=== PATIENT | male | born 1980 | race African-American/Black ===

== ENCOUNTER 2019-07-20 12:31 | Emergency (ER) | payer MEDICAID ==
[~2019-07-20] VITALS: Ht 167.6 cm; Wt 82.0 kg
[2019-07-20 13:32] VITALS: BP 104/84
== END 2019-07-20 15:30 | disposition left against medical advice (07) ==
LOC: ER 12:31
DX: Z53.21 Procedure and treatment not carried out due to patient leaving prior to being seen by health care provider (principal)

== ENCOUNTER 2021-03-17 18:45 | Emergency (ER) | payer MEDICAID ==
[~2021-03-17] VITALS: Ht 175.3 cm; Wt 75.0 kg
[2021-03-17 20:40] LABS: CLARITY URINE CLEAR (CLEAR); COLOR URINE YELLOW (YELLOW); KETONES URINE TRACE (NEGATIVE); LEUKOCYTE ESTERASE URINE NEGATIVE (NEGATIVE); NITRITE URINE NEGATIVE (NEGATIVE); OCCULT BLOOD URINE NEGATIVE (NEGATIVE); PH URINE 6.5 (4.5-8.0); PROTEIN URINE 1+ (NEGATIVE); SPECIFIC GRAVITY URINE 1.021 (1.005-1.030); UROBILINOGEN URINE 0.2 E.U./dL (0.2-1.0)
[2021-03-17 20:51] LABS: BASOPHILS % 0.4 % (0.0-2.0); EOSINOPHILS % 1.3 % (0.0-5.0); HEMOGLOBIN. 12.7 g/dL (14.0-18.0); LYMPHOCYTES % 16.4 % (20.0-50.0); MEAN CORPUSCULAR HEMOGLOBIN 26.4 pg (28.0-32.0); MEAN CORPUSCULAR VOLUME 83.4 fL (80.0-94.0); MEAN PLATELET VOLUME 8.9 fl (7.4-10.4); MONOCYTES % 6.7 % (2.0-8.0); NEUTROPHILS % 75.2 % (40.0-76.0); PLATELET 222 x1000/uL (130-400); RED BLOOD CELL COUNT 4.79 mill/uL (4.7-6.1); RED CELL DISTRIBUTION WIDTH 14.7 % (11.6-14.6)
[2021-03-17 21:05] LABS: CHLORIDE 110 mEq/L (98-107)
[2021-03-17 21:09] LABS: ETHANOL BLOOD < 10 mg/dL
[2021-03-17 21:11] LABS: *AMPHETAMINES SCREEN URINE NEGATIVE (NEGATIVE); *BARBITURATES SCREEN URINE NEGATIVE (NEGATIVE)
[2021-03-17 21:12] LABS: *BENZODIAZEPINES SCREEN URINE NEGATIVE (NEGATIVE); *COCAINE SCREEN URINE NEGATIVE (NEGATIVE); CANNABINOID URINE SCREEN PRESUMTIVE POSITIVE (NEGATIVE); METHADONE URINE SCREEN NEGATIVE (NEGATIVE); OPIATES URINE SCREEN NEGATIVE (NEGATIVE); PHENCYCLIDINE URINE SCREEN NEGATIVE (NEGATIVE)
[2021-03-17] MEDS ORDERED: LEVETIRACETAM 500MG TABLET PO NR (22:45)
[2021-03-17] MEDS ORDERED: KEPP500 MT (23:16)
[2021-03-18 00:30] VITALS: BP 112/53
== END 2021-03-18 01:00 | disposition home or self-care (01) ==
LOC: ER 18:45
DX: R56.9 Unspecified convulsions (principal); D64.9 Anemia, unspecified; S00.512A Abrasion of oral cavity, initial encounter; X58.XXXA Exposure to other specified factors, initial encounter; Y93.89 Activity, other specified; Y92.018 Other place in single-family (private) house as the place of occurrence of the external cause
CPT/HCPCS: 36415; 80053; 80305; 80320; 81003; 82962; 85025; 99285; G0480

== ENCOUNTER 2021-04-08 12:41 | Emergency (ER) | payer MEDICAID ==
[~2021-04-08] VITALS: Ht 170.2 cm; Wt 73.0 kg
[~2021-04-08 12:41] MED LIST: KEPP500 MT
[2021-04-08] MEDS ORDERED: KETOROLAC 30MG/ML VIAL IV NR (12:46)
[2021-04-08] MEDS ORDERED: ONDANSETRON HCL 4MG/2ML INJ IV NR (12:46)
[2021-04-08 15:49] VITALS: BP 121/87
[2021-04-08 15:52] LABS: BASOPHILS % 0.4 % (0.0-2.0); HEMATOCRIT. 41.6 % (42.0-52.0); HEMOGLOBIN. 13.3 g/dL (14.0-18.0); LYMPHOCYTES % 15.8 % (20.0-50.0); MEAN CORPUSCULAR HEMOGLOBIN 25.6 pg (28.0-32.0); MEAN PLATELET VOLUME 9.3 fl (7.4-10.4); MONOCYTES % 6.2 % (2.0-8.0); NEUTROPHILS % 77.6 % (40.0-76.0); PLATELET 290 x1000/uL (130-400); RED BLOOD CELL COUNT 5.19 mill/uL (4.7-6.1); RED CELL DISTRIBUTION WIDTH 14.3 % (11.6-14.6)
[2021-04-08 16:00] LABS: CHLORIDE 105 mEq/L (98-107)
[2021-04-08 16:37] LABS: ETHANOL BLOOD < 10 mg/dL
[2021-04-08 17:00] LABS: CLARITY URINE CLEAR (CLEAR); COLOR URINE DARK YELLOW (YELLOW); KETONES URINE 4+ (NEGATIVE); LEUKOCYTE ESTERASE URINE NEGATIVE (NEGATIVE); NITRITE URINE NEGATIVE (NEGATIVE); OCCULT BLOOD URINE NEGATIVE (NEGATIVE); PH URINE 6.5 (4.5-8.0); PROTEIN URINE 1+ (NEGATIVE); SPECIFIC GRAVITY URINE 1.028 (1.005-1.030)
[2021-04-08] MEDS ORDERED: POTASSIUM CHLORIDE 20MEQ TABLET SR PO ONE (17:00)
[2021-04-08 17:10] LABS: *AMPHETAMINES SCREEN URINE PRESUMTIVE POSITIVE (NEGATIVE); *BARBITURATES SCREEN URINE NEGATIVE (NEGATIVE); *BENZODIAZEPINES SCREEN URINE NEGATIVE (NEGATIVE)
[2021-04-08 17:11] LABS: *COCAINE SCREEN URINE NEGATIVE (NEGATIVE); CANNABINOID URINE SCREEN PRESUMTIVE POSITIVE (NEGATIVE); METHADONE URINE SCREEN NEGATIVE (NEGATIVE); OPIATES URINE SCREEN NEGATIVE (NEGATIVE); PHENCYCLIDINE URINE SCREEN NEGATIVE (NEGATIVE)
[2021-04-08] MEDS ORDERED: OMEP20CA14 MT (18:32)
[2021-04-08] MEDS ORDERED: POTA20TA82 MT (18:32)
[2021-04-08] MEDS ORDERED: ONDA4TAB11 PO (18:32)
== END 2021-04-08 18:52 | disposition home or self-care (01) ==
LOC: ER 12:41
DX: R10.13 Epigastric pain (principal); R11.2 Nausea with vomiting, unspecified; R51.9 Headache, unspecified
CPT/HCPCS: 36415; 71045; 76705; 80053; 80305; 80320; 81003; 83690; 83880; 84484; 85025; 93005; 96374; 96375; 99285; J1885; J2405; G0480

== ENCOUNTER 2021-08-06 04:20 | Emergency (ER) | payer MEDICAID ==
[~2021-08-06] VITALS: Ht 170.2 cm; Wt 66.0 kg
[~2021-08-06 04:20] MED LIST changes: +OMEP20CA14 MT; +ONDA4TAB11 PO; +POTA20TA82 MT
[2021-08-06] MEDS ORDERED: FAMOTIDINE 20MG/2ML VIAL IV STA (05:02)
[2021-08-06] MEDS ORDERED: MORPHINE SULFATE 4 MG/ML CPJ (NOT FOR IM USE) IV STA (05:02)
[2021-08-06] MEDS ORDERED: ONDANSETRON HCL 4MG/2ML INJ IV STA (05:02)
[2021-08-06] MEDS ORDERED: SODIUM CHLORIDE 0.9% 1,000 ML IV ONE (05:15)
[2021-08-06 05:29] LABS: CHLORIDE 100 mEq/L (98-107)
[2021-08-06 05:30] LABS: BASOPHILS % 0.7 % (0.0-2.0); EOSINOPHILS % 1.4 % (0.0-5.0); HEMATOCRIT. 41.9 % (42.0-52.0); INR 1.1; LYMPHOCYTES % 19.3 % (20.0-50.0); MEAN CORPUSCULAR HEMOGLOBIN 26.6 pg (28.0-32.0); MEAN CORPUSCULAR VOLUME 79.5 fL (80.0-94.0); MEAN PLATELET VOLUME 8.7 fl (7.4-10.4); MONOCYTES % 8.4 % (2.0-8.0); NEUTROPHILS % 70.2 % (40.0-76.0); PLATELET 296 x1000/uL (130-400); PROTHROMBIN TIME 11.4 sec (9.6-11.0); RED BLOOD CELL COUNT 5.26 mill/uL (4.7-6.1); RED CELL DISTRIBUTION WIDTH 13.9 % (11.6-14.6)
[2021-08-06 07:51] LABS: CLARITY URINE CLEAR (CLEAR); COLOR URINE DARK YELLOW (YELLOW); KETONES URINE 3+ (NEGATIVE); LEUKOCYTE ESTERASE URINE NEGATIVE (NEGATIVE); NITRITE URINE NEGATIVE (NEGATIVE); OCCULT BLOOD URINE NEGATIVE (NEGATIVE); PH URINE 5.5 (4.5-8.0); PROTEIN URINE 2+ (NEGATIVE); SPECIFIC GRAVITY URINE 1.036 (1.005-1.030)
[2021-08-06 08:03] VITALS: BP 117/73
[2021-08-06] MEDS ORDERED: POTASSIUM CHLORIDE 20MEQ/PACKET PO ONE (08:15)
[2021-08-06 08:29] LABS: *AMPHETAMINES SCREEN URINE PRESUMTIVE POSITIVE (NEGATIVE); *BARBITURATES SCREEN URINE NEGATIVE (NEGATIVE); *BENZODIAZEPINES SCREEN URINE PRESUMTIVE POSITIVE (NEGATIVE); CANNABINOID URINE SCREEN PRESUMTIVE POSITIVE (NEGATIVE); METHADONE URINE SCREEN NEGATIVE (NEGATIVE); OPIATES URINE SCREEN PRESUMTIVE POSITIVE (NEGATIVE); PHENCYCLIDINE URINE SCREEN NEGATIVE (NEGATIVE)
[2021-08-06 08:30] LABS: *COCAINE SCREEN URINE PRESUMTIVE POSITIVE (NEGATIVE)
== END 2021-08-06 09:48 | disposition home or self-care (01) ==
LOC: ER 05:57
DX: R11.2 Nausea with vomiting, unspecified (principal); R10.9 Unspecified abdominal pain; F19.10 Other psychoactive substance abuse, uncomplicated; R56.9 Unspecified convulsions; Z79.899 Other long term (current) drug therapy
CPT/HCPCS: 36415; 74176; 80053; 80305; 80320; 81003; 83690; 85025; 85610; 86850; 86900; 86901; 93005; 96361; 96374; 96375; 99285; J2270; J2405; J3490; J7030; G0480

== ENCOUNTER 2021-08-06 12:35 | Emergency (ER) | payer MEDICAID ==
[~2021-08-06] VITALS: Ht 170.2 cm; Wt 66.0 kg
[2021-08-06 12:42] VITALS: BP 132/67
[2021-08-06] MEDS ORDERED: MAGNESIUM/ALUMINUM HYDROXIDE/SIMETHICONE 30ML UDC PO STA (12:55)
[2021-08-06] MEDS ORDERED: POTASSIUM CHLORIDE 20MEQ TABLET SR PO ONE (13:00)
== END 2021-08-06 16:54 | disposition home or self-care (01) ==
LOC: ER 12:37
DX: R10.13 Epigastric pain (principal); Z79.899 Other long term (current) drug therapy
CPT/HCPCS: 93005; 99283

== ENCOUNTER 2021-09-17 06:59 | Emergency (ER) | payer MEDICAID ==
[~2021-09-17] VITALS: Ht 172.7 cm; Wt 75.0 kg
[2021-09-17 07:32] VITALS: BP 118/72
== END 2021-09-17 09:49 | disposition left against medical advice (07) ==
LOC: ER 06:59
DX: Z53.21 Procedure and treatment not carried out due to patient leaving prior to being seen by health care provider (principal)
CPT/HCPCS: 99281

== ENCOUNTER 2021-10-18 21:18 | Emergency (ER) | payer MEDICAID ==
[~2021-10-18 21:18] MED LIST changes: +POTA-205 MT; -POTA20TA82 MT
[2021-10-18 21:27] VITALS: BP 223/142
== END 2021-10-18 22:48 | disposition left against medical advice (07) ==
LOC: ER 21:18
DX: Z53.21 Procedure and treatment not carried out due to patient leaving prior to being seen by health care provider (principal)

== ENCOUNTER 2021-11-12 13:08 | Emergency (ER) | payer MEDICAID ==
[~2021-11-12] VITALS: Ht 177.8 cm; Wt 77.0 kg
[~2021-11-12 13:08] MED LIST changes: +ABIL5 PO
[2021-11-12 13:09] VITALS: BP 143/95
== END 2021-11-12 14:50 | disposition left against medical advice (07) ==
LOC: ER 13:08
DX: Z53.21 Procedure and treatment not carried out due to patient leaving prior to being seen by health care provider (principal)

== ENCOUNTER 2021-11-13 07:09 | Emergency (ER) | payer MEDICAID | END 2021-11-13 07:29 | disposition left against medical advice (07) | LOC: ER 07:09 | DX: Z53.21 Procedure and treatment not carried out due to patient leaving prior to being seen by health care provider (principal) ==